=== PATIENT | female | born 1970 | race African-American/Black ===

== ENCOUNTER 2018-12-19 14:26 | Emergency (ER) | payer OTHER ==
[~2018-12-19] VITALS: Ht 177.8 cm; Wt 127.0 kg
--- OUTSIDE RECORDS SUMMARY | 2018-12-19 14:29 | XMS REPORT | Clinical Summary ---
Author Author [facility]rence [facility] Organization [facility] Address Unknown Phone Unavailable Care Team Providers Care Adaptive Physical Educator Name Role Phone Huong Jon DO PCP Allergies No Known Allergies Medications End Date Status Medication Sig Dispensed Refills Start Date 08/13/2018 penicillin v potassium Take 1 tablet 20 tablet 0 (VEETID) 500 MG tablet (500 mg 9 total) by mouth 2 (two) times a day for 10 days. Active Problems Not on file Encounters Care Team Description Date Type Specialty Krystina Ricci MD Sore throat (Primary Dx) 08/03/2018 Emergency Emergency Medicine after 12/18/2017 Social History Date Tobacco Use Types Packs/Day Years Used Never Smoker Alcohol Use Drinks/Week oz/Week Comments No Alcohol Habits Answer Date Recorded How often do you have a drink containing alcohol? Never 08/03/2018 How many drinks containing alcohol do you have on Not asked a typical day when you are drinking? How often do you have six or more drinks on one Not asked occasion? Sex Assigned at Date Recorded Not on file Industry Job Start Date Occupation Not on file Not on file Not on file Travel End Travel History Travel Start No recent travel history available. Last Filed Vital Signs Time Taken Vital Sign Reading 08/03/2018 8:58 AM WELDING OPERATOR Blood Pressure 139/79 08/03/2018 8:58 AM WELDING OPERATOR Pulse 75 08/03/2018 8:58 AM WELDING OPERATOR Temperature 36.8 C (98.3 F) 08/03/2018 8:58 AM WELDING OPERATOR Respiratory Rate 20 08/03/2018 8:58 AM WELDING OPERATOR Oxygen Saturation 97% - Inhaled Oxygen - Concentration - Weight - 08/03/2018 9:00 AM WELDING OPERATOR Height 177.8 cm (5' 10") - Body Mass Index - Plan of Treatment Not on file Procedures Comments Procedure Name Priority Date/Time Associated Diagnosis HCG QUALITATIVE, URINE Routine 08/03/2018 SCREEN 9:54 AM WELDING OPERATOR URINALYSIS SCREEN AND Routine 08/03/2018 MICROSCOPY, WITH REFLEX 9:54 AM WELDING OPERATOR TO CULTURE URINE CULTURE Routine 08/03/2018 9:54 AM WELDING OPERATOR STREP SCREEN CULTURE Routine 08/03/2018 9:34 AM WELDING OPERATOR GROUP A STREP, RAPID Routine 08/03/2018 ANTIGEN 9:34 AM WELDING OPERATOR after 12/18/2017 Results * Urinalysis screen and microscopy, with reflex to culture (08/03/2018 9:54 AM WELDING OPERATOR) Specimen site Clean catch [facility] Color, UA Yellow [facility] Appearance, UA Clear [facility] Specific 1.018 1.001 - 1.030 [place] gravity, UA [facility] pH, UA 6.0 5.0 - 9.0 [facility] Protein, UA Negative Negative [facility] Glucose, UA Negative Negative [facility] Ketones, UA Negative Negative [facility] Bilirubin, UA Negative Negative [facility] Blood, UA Negative Negative [facility] Nitrite, UA Negative Negative [facility] Urobilinogen, <2.0Comment: Results confirmed <2.0 E.U./dL [place] UA by another methodology. [facility] Leukocyte Negative Negative [place] esterase, [facility] Epithelial <1 /HPF [place] cells, UA [facility] WBC, UA 2 0 - 4 /HPF [facility] RBC, UA 4 0 - 5 /HPF [facility] Bacteria, UA None seen None seen [facility] Yeast, UA None seen [facility] Yeast with None seen [place] [facility] Specimen Urine Performing Organization Address City/State/Zipcode Phone Number [place] [address] [place] [address] PATHOLOGY AND GENOMIC MEDICINE [facility] [address] * hCG qualitative, urine screen (08/03/2018 9:54 AM WELDING OPERATOR) hCG NegativeComment: Sensitivity [place] qualitative, of HCG test: 25 mIU/ml [facility] Specimen Urine Performing Organization Address City/State/Zipcode Phone Number [facility] [place] [address] [place] [address] PATHOLOGY AND GENOMIC MEDICINE [address] * Urine culture (08/03/2018 9:54 AM WELDING OPERATOR) Pathologist [facility] Urine culture SEE COMMENTComment: [place] Bacteriuria screen negative. [facility] Specimen Performing Organization Address City/State/Zipcode Phone Number [facility] [place] [address] [address] * Group A strep, rapid antigen (08/03/2018 9:34 AM WELDING OPERATOR) Pathologist [facility] Group A strep, Negative for Group A [place] rapid antigen Streptococcus antigen. [facility] result All negative [facility] Streptococcus antigen screens are confirmed by culture. Comment: Specimen Information Specimen Source: Throat Specimen Site: Not otherwise specified Specimen Throat - Not otherwise specified Performing Organization Address City/State/Zipcode Phone Number [facility] [place] [address] PATHOLOGY [address] * Strep screen culture (08/03/2018 9:34 AM WELDING OPERATOR) Pathologist [facility] Strep screen No beta hemolytic Streptococci [place] culture isolate isolated [facility] Comment: HOSPITAL Specimen Information Specimen Source: Throat Specimen Site: Not otherwise specified Specimen Throat - Not otherwise specified Performing Organization Address City/State/Zipcode Phone Number [facility] DEPARTMENT OF [address] [place] [address] PATHOLOGY AND [facility] MEDICINE [address] [address] HOSPITAL after 12/18/2017 Insurance Type Payer Benefit Subscriber ID Effective Phone Address Plan / Dates Group PPO BCBS BCBS xxxxxxxxxxxx [id number] CHOICE resent PPO/ALYCIA VARELA PPO Advance Directives Patient has advance care planning documents on file. For more information, wilfredo felder contact: Terrence Chavarria [address] [place] [address]
--- OUTSIDE RECORDS SUMMARY | 2018-12-19 14:29 | XMS REPORT ---
Author Author Admin, [place] Organization [facility] Address [address] [place] [id number] Phone Allergies, Adverse Reactions, Alerts Allergy Name Reaction Description Start Date Severity Status Provider Allergies Unknown Conditions or Problems Problem Name Problem Code Onset Date Status Entry Date Provider Comment Standard Description Annotate Problems Unknown Medication List Medication Instructions Start Date Stop Date Generic Name NDC Status Provider Patient Instruction Drug Treatment Unknown - unknown
[2018-12-19 14:46] VITALS: BP 140/80
== END 2018-12-19 14:56 | disposition home or self-care (01) ==
LOC: FSED 14:26
DX: L50.9 Urticaria, unspecified (principal); I10 Essential (primary) hypertension; F32.9 Major depressive disorder, single episode, unspecified; B20 Human immunodeficiency virus [HIV] disease; Z91.14 Patient's other noncompliance with medication regimen
CPT/HCPCS: 99282